=== PATIENT | female | born 1990 | race Caucasian/White ===

== ENCOUNTER 2016-09-04 17:10 | Emergency (ER) | payer MEDICAID, OTHER ==
[~2016-09-04] VITALS: Ht 154.9 cm; Wt 61.7 kg
[2016-09-04 17:19] VITALS: Ht 154.9 cm; Wt 61.7 kg
--- NOTE | 2016-09-04 19:43 | RADRPT ---
PROCEDURE: US Lower extremity Venous. CLINICAL INDICATION: bilateral calf pain x 1 week TECHNIQUE: Multiple sonographic images of the bilateral lower extremity deep venous system was obt ained utilizing grayscale, color-flow, compressive sonography and doppler imaging with augmentation. The images were reviewed on a PACS workstation. COMPARISON: None. FINDINGS: There is normal compressibility and flow within the bilateral common femoral, deep femoral, superfic ial femoral and popliteal veins. The deep veins the calf were incompletely visualized. IMPRESSION: No sonographic evidence for deep venous thrombosis in the bilateral lower extremities. Physician Dustin Date Time Electronically viewed and signed by Physician Dustin on 09/04/2016 19:43 ML/
[2016-09-04] MEDS ORDERED: ACET325T33 PO (20:46)
--- NOTE | 2016-09-04 21:00 | ERD ---
ER Documentation Chief Complaint Date/Time DATE: 09/04/16 TIME: 20:51 Chief Complaint BILATERAL LEG PAIN X 6 DAYS. SENT HERE FROM [facility] TO GET AN ULTRASOUND HPI 25 year old female with no significant past medical history who is a presents to the ED complaining of bilateral leg pain that started intermittently since 1 week ago and has become constant. States that her last menses was 05/14/16. States that it radiates up her legs and feels like a burning hot sensation. Denies any recent traveling. 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 Lobo sent her here for further evaluation. States that it feels itchy. Denies any weakness, loss of sensation, loss of range of motion, numbness or tingling, chest pain, SOB. Denies any vaginal bleeding, vaginal discharge, abdominal pain, nausea, vomiting. ROS All systems reviewed and are negative except as per history of present illness. Medications Home Meds Active Scripts Acetaminophen* (Tylenol*) 325 Mg Tablet, 1 TAB PO Q6 Y for PAIN AND OR ELEVATED TEMP, #20 TAB Prov:NICHOLAS KERR PA-C 09/04/16 Allergies Allergies: Coded Allergies: No Known Allergy (Unverified , 09/04/16) PMhx/Soc History of Surgery: No Anesthesia Reaction: No Hx Neurological Disorder: No Hx Respiratory Disorders: No Hx Cardiac Disorders: No Hx Psychiatric Problems: No Hx Miscellaneous Medical Probl: No (DENIES MED AND SURG HX:) Hx Alcohol Use: No Hx Substance Use: No Hx Tobacco Use: No Smoking Status: Never smoker Physical Exam Vitals Vital Signs Date Time Temp Pulse Resp B/P Pulse Ox O2 Delivery O2 Flow Rate FiO2 09/04/16 17:19 97.8 92 18 116/67 99 Physical Exam Const: Afa-epa-[id number], well-nourished. In no acute distress. Head: Atraumatic, normocephalic Eyes: Normal Conjunctiva without injection ENT: Normal external ear, nose and mouth. Neck: Full range of motion. No meningismus. Resp: Clear to auscultation bilaterally. No wheezing, rhonchi, rales, or crackles. No accessory muscle use. No retractions. Cardio: Regular rate and rhythm, no murmurs Skin: No petechiae or rashes Back: No midline tenderness. No CVA tenderness. Ext: No cyanosis, or edema. Cap refill less than 2 seconds. Distal pulses intact bilaterally. Slight tenderness to palpation of bilateral calves. No warmth or erythema noted. No warmth to touch. No palpable cords. Neur: Awake and alert. Normal gait and coordination. Muscle strength 5/5. Sensation intact bilaterally. Psych: Normal Mood and Affect Procedures/MDM This is a 25-year-old female with no significant past medical history who is a presents to the ED complaining of bilateral calf pain that started 1 week ago. Patient is afebrile and nontoxic-appearing. Patient has normal vital signs. A venous ultrasound was ordered to further evaluate patient. PROCEDURE: US Lower extremity Venous. CLINICAL INDICATION: bilateral calf pain x 1 week TECHNIQUE: Multiple sonographic images of the bilateral lower extremity deep venous system was obtained utilizing grayscale, color-flow, compressive sonography and doppler imaging with augmentation. The images were reviewed on a PACS workstation. COMPARISON: None. FINDINGS: There is normal compressibility and flow within the bilateral common femoral, deep femoral, superficial femoral and popliteal veins. The deep veins the calf were incompletely visualized. IMPRESSION: No sonographic evidence for deep venous thrombosis in the bilateral lower extremities. Patient's extremity symptoms have stabilized while they have been evaluated in the department and are appropriate for outpatient follow up. No evidence of fractures, dislocations, compartment syndrome, neurologic injury, vascular injury, open joint, open fracture, tendon laceration, septic arthritis, osteomyelitis, DVT, foreign body, or other emergent conditions. Discharge medications: Tylenol Follow up with primary care physician in 1-2 days. Instructed patient to return to the ED sooner for any worsening symptoms. Patient's questions were answered. Patient understood and agreed with discharge plan. Patient discharged stable. Departure Diagnosis: Primary Impression: Leg pain, bilateral Condition: Stable Patient Instructions: : Common Questions, : Body Changes, Possible Causes of Low Back or Leg Pain Ref[facility]: [facility] Usted se fernandes hecho un examen mdico de control que le indica que no est en magaly condicin que requiera tratamiento urgente en el Departamento de Emergencia. Un estudio ms profundo y el tratamiento de ortiz condicin pueden esperar sin ningn riesgo hasta que usted sea atendida/o en el consultorio de ortiz mdico o magaly cl katie. Es responsabilidad suya arreglar magaly rudi para el seguimiento del kobi. MANEJO DE CONDICIONES NO URGENTES EN EL FUTURO 1) Si usted tiene un mdico de atencin primaria: Usted debera llamar a ortiz mdico de atencin primaria antes de venir al departamento de emergencia. Despus de las horas de consultorio, ortiz doctor o ortiz asociado/a est disponible por telfono. El mdico o enfermero de elijah en el servicio telefnico puede asesorarle por kandace medio para atender el problema, o kobi contrario se puede programar magaly rudi. 2) Si usted no tiene un mdico de atencin primaria: Llame al mdico o clnica de referencia que aparece abajo dorothea las horas de consultorio para hacer magaly rudi para que le vean. CLINICAS: [place] [id number] [phone] [facility] [phone] [address] [facility]. [facility] [phone] [address] [facility]. [place] [address] [phone] [facility] [place] [id number] [phone] [facility]. [phone] [facility] () Usted se fernandes hecho un examen mdico de control que le indica que no est en magaly condicin que requiera tratamiento urgente en el Departamento de Emergencia. Un estudio ms profundo y el tratamiento de ortiz condicin pueden esperar sin ningn riesgo hasta que usted sea atendida/o en el consultorio de ortiz mdico o magaly cl katie. Es responsabilidad suya arreglar magaly rudi para el seguimiento del kobi. MANEJO DE CONDICIONES NO URGENTES EN EL FUTURO 1) Si usted tiene un mdico de atencin primaria: Usted debera llamar a ortiz mdico de atencin primaria antes de venir al departamento de emergencia. Despus de las horas de consultorio, ortiz doctor o ortiz asociado/a est disponible por telfono. El mdico o enfermero de elijah en el servicio telefnico puede asesorarle por kandace medio para atender el problema, o kobi contrario se puede programar magaly rudi. 2) Si usted no tiene un mdico de atencin primaria: Llame al mdico o condado institucions de referencia que aparece abajo dorothea las horas de consultorio para hacer magaly rudi para que le vean. SI USTED NO PUEDE PAGAR PARA ALPHONSO UN MEDICO puede ir a: [facility] [phone] [place] [address] [facility] [address] [place] [address] [facility] [address] [place] [address] [address] [facility] [address] [place], [place] [id number] CASE MANAGEMENT ASSIST[place] [address] [facility] [address] [place], [place] [phone] OFFICE FAX DIANNA GIBBS [address] [place], [place] [phone] MATTHEW ANIVAL [address] [place] [phone] MERVAT EWING [address] [facility], [address] [address] [address] [address] [place] [phone] [facility] [place] [address] [place] [address] [address] [facility] [id number] - MYRNA BALDERAS [address], [facility] [address] [address] GUERRIER, JESSY [address] [facility]. [address], [facility] [address] DR HERNÁNDEZ, FARID [address] [place] [address] [facility] Hours: 8:00 am - 5:00 pm Additional Instructions: Ningn cogulo de edison en las piernas fueron encontrados hoy en ultrasonido. seguimiento con ginecoobstetra en 2 sneed de ms atencin y tratamiento Regrese a estas instalaciones si no se mejora sheridan esperbamos o sheridan le dijimos. NICHOLAS KERR PA-C Sep 04, 2016 21:00
== END 2016-09-04 20:55 | disposition home or self-care (01) ==
LOC: FTE 17:10
DX: O99.89 Other specified diseases and conditions complicating pregnancy, childbirth and the puerperium (principal); M79.605 Pain in left leg; M79.604 Pain in right leg; Z3A.16 16 weeks gestation of pregnancy
CPT/HCPCS: 93970; Z7502